=== PATIENT | male | born 1960 | race American Indian/Alaskan Native ===

== ENCOUNTER 2019-02-21 13:12 | Inpatient (IN) | payer OTHER ==
--- NOTE | 2019-02-21 13:47 | Emergency Department Report ---
Chief Complaint: Neuro Symptoms/Deficit Stated Complaint: RT SIDE NUMB/POS STROKE Time Seen by Provider: 02/21/19 13:42 - HPI History of Present Illness: This is a 58 y.o. male that presents to ER with right sided numbness and weakness since yesterday around 1200. Patient reports numbness occurred while at work yesterday and improved. He went home and symptoms returned with worsening this morning. Patient states he was told at work today speech is slurred. PMH: HTN - Exam Vital Signs: Vital Signs 02/21/19 13:43 Temperature 98.7 F Pulse Rate 90 Respiratory 16 Rate Blood Pressure 166/104 O2 Sat by Pulse 97 Oximetry MSE screening note: Focused history and physical exam performed. Due to findings the following was ordered: Labs and CT of head ED Disposition for MSE Condition: Stable
[2019-02-21 14:55] LABS: Basophils # (Auto) 0.1 K/mm3 (0.0-0.1); Eosinophils # (Auto) 0.3 K/mm3 (0.0-0.4); Eosinophils % (Auto) 5.4 % (0.0-4.3); Hematocrit 48.1 % (35.5-45.6); Hemoglobin 16.5 gm/dl (11.8-15.2); Lymphocytes # (Auto) 1.5 K/mm3 (1.2-5.4); Lymphocytes % (Auto) 24.5 % (13.4-35.0); Mean Corpuscular HGB Conc 34 % (32-34); Mean Corpuscular Volume 84 fl (84-94); Monocytes # (Auto) 0.6 K/mm3 (0.0-0.8); Monocytes % (Auto) 9.3 % (0.0-7.3); Platelet Count 195 K/mm3 (140-440); Red Blood Count 5.74 M/mm3 (3.65-5.03); Red Cell Distribution Width 15.6 % (13.2-15.2)
[2019-02-21 15:09] LABS: INR 0.94 (0.87-1.13)
--- NOTE | 2019-02-21 15:09 | Cat Scan Report ---
PROCEDURE: CT HEAD/BRAIN WO CON TECHNIQUE: A noncontrast CT of the head was performed. HISTORY: neuro deficits <6hrs or sx present upon awakening COMPARISON: None FINDINGS: There is no acute intracranial hemorrhage. There is no brain edema, mass effect or midline shift. Ventricular size is appropriate for brain volume. There is no abnormal extra-axial fluid collections. There is no skull fracture seen. The visualized paranasal sinuses are clear. IMPRESSION: There is no acute intracranial abnormality seen. This document is electronically signed by Meghana Roberson MD., Feb 21 2019 03:07:51 PM ET
[2019-02-21 15:10] LABS: Thrombin Time 16.3 Sec. (15.1-19.6)
[2019-02-21 15:18] LABS: BUN/Creatinine Ratio 7; Blood Urea Nitrogen 8 mg/dL (9-20); Calcium 9.6 mg/dL (8.4-10.2); Hemolysis Index 34
[2019-02-21 18:47] LABS: Bilirubin,Urine NEG (Negative); Blood,Urine NEG (Negative); Color,Urine Yellow (Yellow); Mucus,Urine FEW /HPF; Protein,Urine <15 mg/dL mg/dL (Negative)
[2019-02-21 18:48] LABS: RBC,Urine < 1.0 /HPF (0.0-6.0)
[2019-02-21 18:49] LABS: Amphetamine Screen,Urine PRESUMPTIVE NEGATIVE; Benzodiazepines Screen,Urine PRESUMPTIVE NEGATIVE; Cannabinoid Screen,Urine PRESUMPTIVE NEGATIVE; Cocaine Screen,Urine PRESUMPTIVE NEGATIVE; Methadone Screen,Urine PRESUMPTIVE NEGATIVE; Opiate Screen,Urine PRESUMPTIVE NEGATIVE
--- NOTE | 2019-02-21 18:49 | Emergency Department Report ---
ED Neuro Deficit HPI - General Chief Complaint: Neuro Symptoms/Deficit Stated Complaint: RT SIDE NUMB/POS STROKE Time Seen by Provider: 02/21/19 13:42 Source: patient Mode of arrival: Wheelchair Limitations: No Limitations - History of Present Illness Initial Comments: 58-year-old male with right-sided weakness and numbness. Patient states symptoms began at 12 noon on yesterday and then resolved. Patient states he awoke again this morning at 6 AM with the same symptoms. Patient denies facial droop, however states he feels that his speech is different. States he was told to wear his speech is slurred. PCP: none -: days(s) (1) Location: speech, right arm, right leg Presenting Symptoms: Present: Weak/Paralyzed One Side, Facial Droop/Numbness, Unable to Speak Clearly History of same: No Place: home Severity: moderate Quality: weak, numb, tingling Improves With: none Worsens With: none On Anticoagulants: No Context: sudden onset Associated Symptoms: denies other symptoms Treatments Prior to Arrival: none - Related Data Allergies/Adverse Reactions: Allergies Allergy/AdvReac Type Severity Reaction Status Date / Time No Known Allergies Allergy Unverified 02/21/19 18:49 ED Review of Systems ROS: Stated complaint: RT SIDE NUMB/POS STROKE Other details as noted in HPI Comment: All other systems reviewed and negative Cardiovascular: denies: chest pain Neurological: weakness, numbness, paresthesias. denies: headache ED Past Medical Hx - Past Medical History Previous Medical History?: No - Surgical History Past Surgical History?: No - Social History Smoking Status: Current Every Day Smoker Substance Use Type: Alcohol ED Neuro Physical Exam - General Limitations: No Limitations General appearance: alert, in no apparent distress Suspected Stroke: Yes - Head Head exam: Present: atraumatic, normocephalic - Eye Eye exam: Present: normal appearance, PERRL, EOMI - ENT ENT exam: Present: mucous membranes moist - Neck Neck exam: Present: normal inspection - Respiratory Respiratory exam: Present: normal lung sounds bilaterally. Absent: respiratory distress - Cardiovascular Cardiovascular Exam: Present: regular rate, normal rhythm - GI/Abdominal GI/Abdominal exam: Present: soft. Absent: distended, tenderness - Extremities Exam Extremities exam: Present: normal inspection - Neurological Exam Neurological exam: Present: alert, oriented X3, CN II-XII intact, motor sensory deficit - NIHSS Assessment Interval: Baseline 1a. Level of Consciousness: alert/keenly responsive 1b. LOC Questions: answers both correctly 1c. LOC Commands: performs tasks correctly 2. Best Gaze: normal 3. Visual: no visual loss 4. Facial Palsy: normal symmetrical movement 5b. Motor Arm Right: drift 5a. Motor Arm Left: no drift 6a. Motor Leg Left: no drift 6b. Motor Leg Right: drift 7. Limb Ataxia: absent 8. Sensory: mild/moderate sensory loss 9. Best Language: no aphasia 10. Dysarthria: normal 11. Extinction/Inattention: no abnormality Total Score: 3 Stroke Severity: Minor Stroke - Psychiatric Psychiatric exam: Present: normal affect, normal mood - Skin Skin exam: Present: warm, dry, intact, normal color ED Course Vital Signs 02/21/19 02/21/19 02/21/19 13:43 17:55 18:51 Temperature 98.7 F 98.2 F Pulse Rate 90 86 74 Respiratory 16 16 16 Rate Blood Pressure 166/104 Blood Pressure 155/90 160/106 [Left] O2 Sat by Pulse 97 100 100 Oximetry 02/21/19 02/21/19 02/21/19 19:00 19:15 19:45 Temperature Pulse Rate 72 65 69 Respiratory 11 L 15 21 Rate Blood Pressure 165/109 165/109 149/101 Blood Pressure [Left] O2 Sat by Pulse 100 100 99 Oximetry 02/21/19 02/21/19 02/21/19 20:00 20:15 21:01 Temperature Pulse Rate 65 69 81 Respiratory 14 18 15 Rate Blood Pressure 152/80 152/80 155/98 Blood Pressure [Left] O2 Sat by Pulse 99 99 97 Oximetry 02/21/19 02/21/19 02/21/19 21:45 22:01 22:15 Temperature Pulse Rate 73 70 67 Respiratory 11 L 11 L 18 Rate Blood Pressure 155/98 161/99 161/99 Blood Pressure [Left] O2 Sat by Pulse 99 95 99 Oximetry 02/21/19 02/21/19 02/21/19 22:31 22:45 23:01 Temperature Pulse Rate 69 62 61 Respiratory 16 22 16 Rate Blood Pressure 161/99 161/99 161/99 Blood Pressure [Left] O2 Sat by Pulse 99 99 97 Oximetry 02/21/19 23:49 Temperature 98.2 F Pulse Rate 71 Respiratory 16 Rate Blood Pressure 190/114 Blood Pressure [Left] O2 Sat by Pulse 96 Oximetry - Consultations Consultation #1: 02/21/19 19:12 Pt seen and evaluated by Dr Guillen. Does not recommend CTA, NIH scale only 3. Recommends admit for MRI. - Lab Data Result diagrams: 02/21/19 14:42 02/21/19 14:42 Lab Results 02/21/19 02/21/19 02/21/19 Range/Units 14:42 14:42 14:42 WBC 6.3 (4.5-11.0) K/mm3 RBC 5.74 H (3.65-5.03) M/mm3 Hgb 16.5 H (11.8-15.2) gm/dl Hct 48.1 H (35.5-45.6) % MCV 84 (84-94) fl MCH 29 (28-32) pg MCHC 34 (32-34) % RDW 15.6 H (13.2-15.2) % Plt Count 195 (140-440) K/mm3 Lymph % (Auto) 24.5 (13.4-35.0) % [place] % (Auto) 9.3 H (0.0-7.3) % Eos % (Auto) 5.4 H (0.0-4.3) % Baso % (Auto) 1.0 (0.0-1.8) % Lymph # 1.5 (1.2-5.4) K/mm3 [place] # 0.6 (0.0-0.8) K/mm3 Eos # 0.3 (0.0-0.4) K/mm3 Baso # 0.1 (0.0-0.1) K/mm3 Seg Neutrophils % 59.8 (40.0-70.0) % Seg Neutrophils # 3.8 (1.8-7.7) K/mm3 PT 13.1 (12.2-14.9) Sec. INR 0.94 (0.87-1.13) APTT 27.0 (24.2-36.6) Sec. Thrombin Time 16.3 (15.1-19.6) Sec. Sodium 145 (137-145) mmol/L Potassium 4.5 (3.6-5.0) mmol/L Chloride 107.4 H (98-107) mmol/L Carbon Dioxide 24 (22-30) mmol/L Anion Gap 18 mmol/L BUN 8 L (9-20) mg/dL Creatinine 1.2 (0.8-1.5) mg/dL Estimated GFR > 60 ml/min BUN/Creatinine Ratio 7 % Glucose 103 H (75-100) mg/dL Calcium 9.6 (8.4-10.2) mg/dL Troponin T < 0.010 (0.00-0.029) ng/mL Urine Color (Yellow) Urine Turbidity (Clear) Urine pH (5.0-7.0) Ur Specific [place] (1.003-1.030) Urine Protein (Negative) mg/dL Urine Glucose (UA) (Negative) mg/dL Urine Ketones (Negative) mg/dL Urine Blood (Negative) Urine Nitrite (Negative) Urine Bilirubin (Negative) Urine Urobilinogen (<2.0) mg/dL Ur Leukocyte Esterase (Negative) Urine WBC (Auto) (0.0-6.0) /HPF Urine RBC (Auto) (0.0-6.0) /HPF Urine Mucus /HPF Urine Opiates Screen Urine Methadone Screen Ur Barbiturates Screen Ur Phencyclidine Scrn Ur Amphetamines Screen U Benzodiazepines Scrn Urine Cocaine Screen U Marijuana (THC) Screen Drugs of Abuse Note 02/21/19 02/21/19 Range/Units 17:54 17:54 WBC (4.5-11.0) K/mm3 RBC (3.65-5.03) M/mm3 Hgb (11.8-15.2) gm/dl Hct (35.5-45.6) % MCV (84-94) fl MCH (28-32) pg MCHC (32-34) % RDW (13.2-15.2) % Plt Count (140-440) K/mm3 Lymph % (Auto) (13.4-35.0) % [place] % (Auto) (0.0-7.3) % Eos % (Auto) (0.0-4.3) % Baso % (Auto) (0.0-1.8) % Lymph # (1.2-5.4) K/mm3 [place] # (0.0-0.8) K/mm3 Eos # (0.0-0.4) K/mm3 Baso # (0.0-0.1) K/mm3 Seg Neutrophils % (40.0-70.0) % Seg Neutrophils # (1.8-7.7) K/mm3 PT (12.2-14.9) Sec. INR (0.87-1.13) APTT (24.2-36.6) Sec. Thrombin Time (15.1-19.6) Sec. Sodium (137-145) mmol/L Potassium (3.6-5.0) mmol/L Chloride (98-107) mmol/L Carbon Dioxide (22-30) mmol/L Anion Gap mmol/L BUN (9-20) mg/dL Creatinine (0.8-1.5) mg/dL Estimated GFR ml/min BUN/Creatinine Ratio % Glucose (75-100) mg/dL Calcium (8.4-10.2) mg/dL Troponin T (0.00-0.029) ng/mL Urine Color Yellow (Yellow) Urine Turbidity Clear (Clear) Urine pH 5.0 (5.0-7.0) Ur Specific [place] 1.017 (1.003-1.030) Urine Protein <15 mg/dl (Negative) mg/dL Urine Glucose (UA) Neg (Negative) mg/dL Urine Ketones Neg (Negative) mg/dL Urine Blood Neg (Negative) Urine Nitrite Neg (Negative) Urine Bilirubin Neg (Negative) Urine Urobilinogen 2.0 (<2.0) mg/dL Ur Leukocyte Esterase Neg (Negative) Urine WBC (Auto) 1.0 (0.0-6.0) /HPF Urine RBC (Auto) < 1.0 (0.0-6.0) /HPF Urine Mucus Few /HPF Urine Opiates Screen Presumptive negative Urine Methadone Screen Presumptive negative Ur Barbiturates Screen Presumptive negative Ur Phencyclidine Scrn Presumptive negative Ur Amphetamines Screen Presumptive negative U Benzodiazepines Scrn Presumptive negative Urine Cocaine Screen Presumptive negative U Marijuana (THC) Screen Presumptive negative Drugs of Abuse Note Disclamer - EKG Data -: EKG Interpreted by [place] EKG shows normal: sinus rhythm, axis, intervals Rate: normal Interpretation: other (LAFB, T wave inversions in lateral leads) - Radiology Data Radiology results: report reviewed, image reviewed - Medical Decision Making 58 yo M w/ R-sided weakness and numbness since yesterday. CT negative. NIH scale of 3. Pt outside the window for tPA. CTA not recommended by neurologist. Aspirin given. Will admit to hospitalist for MRI and further workup. - Differential Diagnosis CVA - Thrombolytic Inclusion/Exclusion Thrombolytic Exclusion Criteria: Symptom Onset > 3 Hours Critical care attestation.: If time is entered above; I have spent that time in minutes in the direct care of this critically ill patient, excluding procedure time. ED Disposition Clinical Impression: CVA (cerebral vascular accident) Disposition: OP ADMIT IP TO THIS HOSP Is pt being admited?: Yes Condition: Stable Time of Disposition: 19:17
[2019-02-21] MEDS ORDERED: ASPIRIN PO ONE (19:17)
[2019-02-21] MEDS ORDERED: DULCOLAX PR PRN (20:53)
[2019-02-21] MEDS ORDERED: PHENERGAN PR PRN (20:53)
[2019-02-21] MEDS ORDERED: MILK OF MAGNESIA PO PRN (20:53)
[2019-02-21] MEDS ORDERED: TYLENOL PO PRN (20:53)
[2019-02-21] MEDS ORDERED: SODIUM CHLORIDE FLUSH SYRINGE 10 ML IV PRN (20:53)
[2019-02-21] MEDS ORDERED: PERCOCET 5/325 PO PRN (20:53)
[2019-02-21] MEDS ORDERED: REGLAN PO PRN (20:53)
[2019-02-21] MEDS ORDERED: ZOFRAN IV PRN (20:53)
[2019-02-21] MEDS ORDERED: NACL 0.9% 1000 ML 1,000 ML IV SCH (21:00)
--- NOTE | 2019-02-21 21:21 | History and Physical Report ---
<TATIANA GUTIÉRREZ - Last Filed: 02/21/19 22:23> History of Present Illness Date of examination: 02/21/19 Date of admission: 02/21/2019 Chief complaint: Weakness, strokelike symptoms History of present illness: Patient is a 58-year-old male with PMHx of HTN for which she takes amlodipine, chronic neck and back, tobacco use disorder who presents to the ER with complaints of right-sided weakness and numbness 2 days. Patient states that the symptoms started around 12 noon yesterday and then resolved. Patient states he woke up this morning at 6 AM with the same symptoms, he went back to sleep and when he woke up the symptoms were still there, he decided to come to the ER for evaluation. Patient denies facial droop, he denied slurred speech but states that he feels that his speech is different, he reports right shoulder soreness, denies any injuries, denies prior self or family history of stroke. Patient had a CT scan of the brain in the ER which was negative, is admitted for for evaluation of his acute stroke symptoms. Past History Past Medical History: hypertension Past Surgical History: No surgical history Social history: smoking (daily), alcohol abuse (Occasionally) Family history: no significant family history Medications and Allergies Allergies Allergy/AdvReac Type Severity Reaction Status Date / Time No Known Allergies Allergy Unverified 02/21/19 18:49 Active Meds: Active Medications Acetaminophen (Tylenol) 650 mg PO Q4H PRN PRN Reason: Pain MILD(1-3)/Fever >100.5/GUTIERREZ Aspirin (Aspirin) 325 mg PO QDAY PERRY Bisacodyl (Dulcolax) 10 mg MO QDAY PRN PRN Reason: Constipation Docusate Sodium (Colace) 100 mg PO BID PERRY Famotidine (Pepcid) 20 mg IV BID PERRY Sodium Chloride (Nacl 0.9% 1000 Ml) 1,000 mls @ 75 mls/hr IV DIRECT PERRY Magnesium Hydroxide (Milk Of Magnesia) 30 ml PO Q4H PRN PRN Reason: Constipation Metoclopramide HCl (Reglan) 10 mg PO Q6H PRN PRN Reason: Nausea And Vomiting Ondansetron HCl (Zofran) 4 mg IV Q8H PRN PRN Reason: Nausea And Vomiting Oxycodone/Acetaminophen (Percocet 5/325) 1 tab PO Q6H PRN PRN Reason: Pain, Moderate (4-6) Pravastatin Sodium (Pravachol) 20 mg PO QHS PERRY Promethazine HCl (Phenergan) 25 mg MO Q6H PRN PRN Reason: Nausea And Vomiting Sodium Chloride (Sodium Chloride Flush Syringe 10 Ml) 10 ml IV BID PERRY Sodium Chloride (Sodium Chloride Flush Syringe 10 Ml) 10 ml IV PRN PRN PRN Reason: LINE FLUSH Review of Systems Neurological: weakness (right-sided), numbness Exam - Constitutional Vitals: Temp Pulse Resp BP Pulse Ox 98.2 F 69 18 152/80 99 02/21/19 18:51 02/21/19 20:15 02/21/19 20:15 02/21/19 20:15 02/21/19 20:15 General appearance: Present: no acute distress - EENT Eyes: Present: EOM intact ENT: hearing intact, no dentition normal - Neck Neck: Present: normal ROM - Respiratory Respiratory effort: normal Respiratory: bilateral: CTA - Cardiovascular Rhythm: regular Heart Sounds: Present: S1 & S2 - Extremities Extremities: pulses intact, Full ROM Peripheral Pulses: within normal limits - Abdominal General gastrointestinal: Present: soft, non-tender Male genitourinary: Present: deferred - Rectal Rectal Exam: deferred - Integumentary Integumentary: Present: clear - Musculoskeletal Musculoskeletal: strength equal bilaterally - Psychiatric Psychiatric: appropriate mood/affect - Allied Health Allied health notes reviewed: case management Results - Labs CBC & Chem 7: 02/21/19 14:42 02/21/19 14:42 Labs: Laboratory Last Values WBC 6.3 K/mm3 (4.5-11.0) 02/21/19 14:42 RBC 5.74 M/mm3 (3.65-5.03) H 02/21/19 14:42 Hgb 16.5 gm/dl (11.8-15.2) H 02/21/19 14:42 Hct 48.1 % (35.5-45.6) H 02/21/19 14:42 MCV 84 fl (84-94) 02/21/19 14:42 MCH 29 pg (28-32) 02/21/19 14:42 MCHC 34 % (32-34) 02/21/19 14:42 RDW 15.6 % (13.2-15.2) H 02/21/19 14:42 Plt Count 195 K/mm3 (140-440) 02/21/19 14:42 Lymph % (Auto) 24.5 % (13.4-35.0) 02/21/19 14:42 [place] % (Auto) 9.3 % (0.0-7.3) H 02/21/19 14:42 Eos % (Auto) 5.4 % (0.0-4.3) H 02/21/19 14:42 Baso % (Auto) 1.0 % (0.0-1.8) 02/21/19 14:42 Lymph # 1.5 K/mm3 (1.2-5.4) 02/21/19 14:42 [place] # 0.6 K/mm3 (0.0-0.8) 02/21/19 14:42 Eos # 0.3 K/mm3 (0.0-0.4) 02/21/19 14:42 Baso # 0.1 K/mm3 (0.0-0.1) 02/21/19 14:42 Seg Neutrophils % 59.8 % (40.0-70.0) 02/21/19 14:42 Seg Neutrophils # 3.8 K/mm3 (1.8-7.7) 02/21/19 14:42 PT 13.1 Sec. (12.2-14.9) 02/21/19 14:42 INR 0.94 (0.87-1.13) 02/21/19 14:42 APTT 27.0 Sec. (24.2-36.6) 02/21/19 14:42 16.3 Sec. (15.1-19.6) 02/21/19 14:42 Sodium 145 mmol/L (137-145) 02/21/19 14:42 Potassium 4.5 mmol/L (3.6-5.0) 02/21/19 14:42 Chloride 107.4 mmol/L (98-107) H 02/21/19 14:42 Carbon Dioxide 24 mmol/L (22-30) 02/21/19 14:42 18 mmol/L 02/21/19 14:42 BUN 8 mg/dL (9-20) L 02/21/19 14:42 1.2 mg/dL (0.8-1.5) 02/21/19 14:42 Estimated GFR > 60 ml/min 02/21/19 14:42 7 % 02/21/19 14:42 Glucose 103 mg/dL (75-100) H 02/21/19 14:42 Calcium 9.6 mg/dL (8.4-10.2) 02/21/19 14:42 < 0.010 ng/mL (0.00-0.029) 02/21/19 14:42 Yellow (Yellow) 02/21/19 17:54 Clear (Clear) 02/21/19 17:54 5.0 (5.0-7.0) 02/21/19 17:54 Ur Specific [place] 1.017 (1.003-1.030) 02/21/19 17:54 <15 mg/dl mg/dL (Negative) 02/21/19 17:54 Neg mg/dL (Negative) 02/21/19 17:54 Neg mg/dL (Negative) 02/21/19 17:54 Neg (Negative) 02/21/19 17:54 Neg (Negative) 02/21/19 17:54 Neg (Negative) 02/21/19 17:54 2.0 mg/dL (<2.0) 02/21/19 17:54 Ur Leukocyte Esterase Neg (Negative) 02/21/19 17:54 1.0 /HPF (0.0-6.0) 02/21/19 17:54 < 1.0 /HPF (0.0-6.0) 02/21/19 17:54 Few /HPF 02/21/19 17:54 Presumptive negative 02/21/19 17:54 Presumptive negative 02/21/19 17:54 Ur Barbiturates Screen Presumptive negative 02/21/19 17:54 Ur Phencyclidine Scrn Presumptive negative 02/21/19 17:54 Ur Amphetamines Screen Presumptive negative 02/21/19 17:54 U Benzodiazepines Scrn Presumptive negative 02/21/19 17:54 Presumptive negative 02/21/19 17:54 U Marijuana (THC) Screen Presumptive negative 02/21/19 17:54 Disclamer 02/21/19 17:54 Assessment and Plan Assessment and plan: 1. Acute ischemic stroke 2. Accelerated hypertension 3. Tobacco use disorder 4. Chronic neck/back pain Plan: Patient is admitted to a telemetry for acute stroke symptoms Stroke protocol initiated MRI of the brain to follow up CT Bilateral carotid Doppler study Echocardiogram in the a.m. Consultation neurology for evaluation PT/OT to eval and treat Case management for DC Plan Hydralazine 10 mg daily for systolic BP greater than 165 Start aspirin, statin, beta freddy Check hemoglobin A1c and lipid panel Plan of care discussed with patient, voiced understanding Patient's condition and plan of Care discussed with Dr. Ramírez Advance Directives: Yes VTE prophylaxis?: Mechanical Plan of care discussed with patient/family: Yes <ROBERTH RAMÍREZ - Last Filed: 02/22/19 02:48> History of Present Illness Date of admission: 02/21/19 20:54 Medications and Allergies Active Meds: Active Medications Acetaminophen (Tylenol) 650 mg PO Q4H PRN PRN Reason: Pain MILD(1-3)/Fever >100.5/GUTIERREZ Aspirin (Aspirin) 325 mg PO QDAY PERRY Bisacodyl (Dulcolax) 10 mg MO QDAY PRN PRN Reason: Constipation Docusate Sodium (Colace) 100 mg PO BID PERRY Famotidine (Pepcid) 20 mg IV BID PERRY Hydralazine HCl (Apresoline) 10 mg IV Q4HR PERRY Sodium Chloride (Nacl 0.9% 1000 Ml) 1,000 mls @ 75 mls/hr IV DIRECT PERRY Magnesium Hydroxide (Milk Of Magnesia) 30 ml PO Q4H PRN PRN Reason: Constipation Metoclopramide HCl (Reglan) 10 mg PO Q6H PRN PRN Reason: Nausea And Vomiting Ondansetron HCl (Zofran) 4 mg IV Q8H PRN PRN Reason: Nausea And Vomiting Oxycodone/Acetaminophen (Percocet 5/325) 1 tab PO Q6H PRN PRN Reason: Pain, Moderate (4-6) Pravastatin Sodium (Pravachol) 20 mg PO QHS PERRY Promethazine HCl (Phenergan) 25 mg MO Q6H PRN PRN Reason: Nausea And Vomiting Sodium Chloride (Sodium Chloride Flush Syringe 10 Ml) 10 ml IV BID PERRY Sodium Chloride (Sodium Chloride Flush Syringe 10 Ml) 10 ml IV PRN PRN PRN Reason: LINE FLUSH Exam - Constitutional Vitals: Temp Pulse Resp BP Pulse Ox 98.2 F 61 16 161/99 97 02/21/19 18:51 02/21/19 23:01 02/21/19 23:01 02/21/19 23:01 02/21/19 23:01 Results - Labs CBC & Chem 7: 02/21/19 14:42 02/21/19 14:42 Labs: Laboratory Last Values WBC 6.3 K/mm3 (4.5-11.0) 02/21/19 14:42 RBC 5.74 M/mm3 (3.65-5.03) H 02/21/19 14:42 Hgb 16.5 gm/dl (11.8-15.2) H 02/21/19 14:42 Hct 48.1 % (35.5-45.6) H 02/21/19 14:42 MCV 84 fl (84-94) 02/21/19 14:42 MCH 29 pg (28-32) 02/21/19 14:42 MCHC 34 % (32-34) 02/21/19 14:42 RDW 15.6 % (13.2-15.2) H 02/21/19 14:42 Plt Count 195 K/mm3 (140-440) 02/21/19 14:42 Lymph % (Auto) 24.5 % (13.4-35.0) 02/21/19 14:42 [place] % (Auto) 9.3 % (0.0-7.3) H 02/21/19 14:42 Eos % (Auto) 5.4 % (0.0-4.3) H 02/21/19 14:42 Baso % (Auto) 1.0 % (0.0-1.8) 02/21/19 14:42 Lymph # 1.5 K/mm3 (1.2-5.4) 02/21/19 14:42 [place] # 0.6 K/mm3 (0.0-0.8) 02/21/19 14:42 Eos # 0.3 K/mm3 (0.0-0.4) 02/21/19 14:42 Baso # 0.1 K/mm3 (0.0-0.1) 02/21/19 14:42 Seg Neutrophils % 59.8 % (40.0-70.0) 02/21/19 14:42 Seg Neutrophils # 3.8 K/mm3 (1.8-7.7) 02/21/19 14:42 PT 13.1 Sec. (12.2-14.9) 02/21/19 14:42 INR 0.94 (0.87-1.13) 02/21/19 14:42 APTT 27.0 Sec. (24.2-36.6) 02/21/19 14:42 16.3 Sec. (15.1-19.6) 02/21/19 14:42 Sodium 145 mmol/L (137-145) 02/21/19 14:42 Potassium 4.5 mmol/L (3.6-5.0) 02/21/19 14:42 Chloride 107.4 mmol/L (98-107) H 02/21/19 14:42 Carbon Dioxide 24 mmol/L (22-30) 02/21/19 14:42 18 mmol/L 02/21/19 14:42 BUN 8 mg/dL (9-20) L 02/21/19 14:42 1.2 mg/dL (0.8-1.5) 02/21/19 14:42 Estimated GFR > 60 ml/min 02/21/19 14:42 7 % 02/21/19 14:42 Glucose 103 mg/dL (75-100) H 02/21/19 14:42 Calcium 9.6 mg/dL (8.4-10.2) 02/21/19 14:42 < 0.010 ng/mL (0.00-0.029) 02/21/19 14:42 Triglycerides 140 mg/dL (2-149) 02/21/19 21:19 Cholesterol 243 mg/dL (50-199) H 02/21/19 21:19 200 mg/dL (50-130) H 02/21/19 21:19 36 mg/dL (40-59) L 02/21/19 21:19 6.75 % 02/21/19 21:19 Yellow (Yellow) 02/21/19 17:54 Clear (Clear) 02/21/19 17:54 5.0 (5.0-7.0) 02/21/19 17:54 Ur Specific [place] 1.017 (1.003-1.030) 02/21/19 17:54 <15 mg/dl mg/dL (Negative) 02/21/19 17:54 Neg mg/dL (Negative) 02/21/19 17:54 Neg mg/dL (Negative) 02/21/19 17:54 Neg (Negative) 02/21/19 17:54 Neg (Negative) 02/21/19 17:54 Neg (Negative) 02/21/19 17:54 2.0 mg/dL (<2.0) 02/21/19 17:54 Ur Leukocyte Esterase Neg (Negative) 02/21/19 17:54 1.0 /HPF (0.0-6.0) 02/21/19 17:54 < 1.0 /HPF (0.0-6.0) 02/21/19 17:54 Few /HPF 02/21/19 17:54 Presumptive negative 02/21/19 17:54 Presumptive negative 02/21/19 17:54 Ur Barbiturates Screen Presumptive negative 02/21/19 17:54 Ur Phencyclidine Scrn Presumptive negative 02/21/19 17:54 Ur Amphetamines Screen Presumptive negative 02/21/19 17:54 U Benzodiazepines Scrn Presumptive negative 02/21/19 17:54 Presumptive negative 02/21/19 17:54 U Marijuana (THC) Screen Presumptive negative 02/21/19 17:54 Disclamer 02/21/19 17:54 Assessment and Plan Assessment and plan: 58-year-old man history of hypertension causing the emergency room with complains of numbness and weakness of the right side that lasted for 15 minutes yesterday. Symptoms return this morning and has been constant. Physical exam is significant for right lower extremity motor 4/5, paresthesia lower extremity, right greater than left. Agree with plan above discontinue carotid Doppler, patient obtaining an MRI of the head and neck
[2019-02-21] MEDS ORDERED: PRAVACHOL PO SCH (22:00)
[2019-02-21 22:03] LABS: Chol/HDL Ratio 6.75 %
--- NOTE | 2019-02-21 23:08 | Consultation ---
History of Present Illness Consult date: 02/21/19 Chief complaint: stroke alert History of present illness: 58 yo male with h/o HTN states yesterday at 1200 noon he noted right side went completely numb, lasted 10-15 min then resolved completely; symptoms came back whil ehe was asleep- LKN 1830 hrs 02/20/19 - woke up with a feeling of incoordination in the right arm/hand and numbness, no h/o stroke before, takes baby aspirin daily; came to ED Medications and Allergies Allergies Allergy/AdvReac Type Severity Reaction Status Date / Time No Known Allergies Allergy Unverified 02/21/19 18:49 Active Meds: Active Medications Acetaminophen (Tylenol) 650 mg PO Q4H PRN PRN Reason: Pain MILD(1-3)/Fever >100.5/GUTIERREZ Aspirin (Aspirin) 325 mg PO QDAY PERRY Bisacodyl (Dulcolax) 10 mg [place] QDAY PRN PRN Reason: Constipation Docusate Sodium (Colace) 100 mg PO BID PERRY Famotidine (Pepcid) 20 mg IV BID [facility] Sodium Chloride (Nacl 0.9% 1000 Ml) 1,000 mls @ 75 mls/hr IV DIRECT PERRY Magnesium Hydroxide (Milk Of Magnesia) 30 ml PO Q4H PRN PRN Reason: Constipation Metoclopramide HCl (Reglan) 10 mg PO Q6H PRN PRN Reason: Nausea And Vomiting Ondansetron HCl (Zofran) 4 mg IV Q8H PRN PRN Reason: Nausea And Vomiting Oxycodone/Acetaminophen (Percocet 5/325) 1 tab PO Q6H PRN PRN Reason: Pain, Moderate (4-6) Pravastatin Sodium (Pravachol) 20 mg PO QHS PERRY Promethazine HCl (Phenergan) 25 mg [place] Q6H PRN PRN Reason: Nausea And Vomiting Sodium Chloride (Sodium Chloride Flush Syringe 10 Ml) 10 ml IV BID PERRY Sodium Chloride (Sodium Chloride Flush Syringe 10 Ml) 10 ml IV PRN PRN PRN Reason: LINE FLUSH Physical Examination - Vital Signs Vital Signs: Vital Signs Temp Pulse Resp BP Pulse Ox 98.7 F 90 16 166/104 97 02/21/19 13:43 02/21/19 13:43 02/21/19 13:43 02/21/19 13:43 02/21/19 13:43 - Level of Consciousness 1a. Level of Consciousness: alert/keenly responsive - LOC Questions 1b. LOC Questions: answers both correctly - LOC Command 1c. LOC Commands: performs tasks correctly - Best Gaze 2. Best Gaze: normal - Visual 3. Visual: no visual loss - Facial Palsy 4. Facial Palsy: minor paralysis - Motor Arm 5a. Motor Arm Left: no drift 5b. Motor Arm Right: drift - Motor Leg 6a. Motor Leg Left: no drift 6b. Motor Leg Right: no drift - Limb Ataxia 7. Limb Ataxia: absent - Sensory 8. Sensory: mild/moderate sensory loss - Best Language 9. Best Language: no aphasia - Dysarthria 10. Dysarthria: normal - Extinction and Inattention 11. Extinction/Inattention: no abnormality - Scoring Total Score: 3 Stroke Severity: Minor Stroke Results - Laboratory Findings CBC and BMP: 02/21/19 14:42 02/21/19 14:42 Abnormal Lab Findings: Abnormal Labs 02/21/19 02/21/19 02/21/19 14:42 14:42 21:19 RBC 5.74 H Hgb 16.5 H Hct 48.1 H RDW 15.6 H [place] % (Auto) 9.3 H Eos % (Auto) 5.4 H Chloride 107.4 H BUN 8 L Glucose 103 H Cholesterol 243 H LDL Cholesterol Direct 200 H HDL Cholesterol 36 L - Diagnostic Findings Additional findings: CT head w/o bleed Assessment and Plan [facility] Tele[facility]urology Consult Services Impression: r/o stroke Recommendations: aspirin now no tPA given LKN time not an LVO MRI brain MRA H/N w/wo casino games dealer if creatinine okay to look at vessels given stuttering course initially telemetry echo, lipids, a1C, b12/folate neurology consultation PT/OT/ENVIRONMENTAL SCIENCE PROFESSOR Sheela Guillen MD [facility] d/w ED doc Metrics: date of consult 02/21/19 LKN 182902/20/19 door: 1310 TS called 1833 TS connected 1839 NIHSS 1839 Medical Decision Making: - Extensive number of diagnosis or management options are considered above. - Extensive amount of complex data reviewed. - High risk of complication and/or morbidity or mortality are associated with differential diagnostic considerations above. - There may be uncertain outcome and increased probability of prolonged functional impairment or high probability of severe prolonged functional impairment associated with some of these differential diagnosis. Medical Data Reviewed: 1.Data reviewed include clinical labs, radiology, Medical Tests; 2.Tests results discussed w/performing or interpreting physician; 3.Obtaining/reviewing old medical records; 4.Obtaining case history from another source; 5.Independent review of image, tracing or specimen. Patient was informed the Neurology Consult would happen via telehealth (remote video) and consented to receiving care in this manner.
[2019-02-22] MEDS: PEPCID IV SCH ×2 (00:10→11:00)
[2019-02-22] MEDS: COLACE PO SCH ×3 (00:10→22:08)
[2019-02-22] MEDS: SODIUM CHLORIDE FLUSH SYRINGE 10 ML IV SCH ×3 (00:11→22:08)
[2019-02-22] MEDS: APRESOLINE IV SCH ×6 (02:11→22:07)
[2019-02-22 06:19] LABS: Basophils # (Auto) 0.1 K/mm3 (0.0-0.1); Basophils % (Auto) 1.2 % (0.0-1.8); Eosinophils # (Auto) 0.4 K/mm3 (0.0-0.4); Eosinophils % (Auto) 6.8 % (0.0-4.3); Hematocrit 45.9 % (35.5-45.6); Hemoglobin 15.2 gm/dl (11.8-15.2); Lymphocytes # (Auto) 1.4 K/mm3 (1.2-5.4); Lymphocytes % (Auto) 24.6 % (13.4-35.0); Mean Corpuscular HGB Conc 33 % (32-34); Mean Corpuscular Volume 85 fl (84-94); Monocytes # (Auto) 0.6 K/mm3 (0.0-0.8); Monocytes % (Auto) 10.6 % (0.0-7.3); Platelet Count 171 K/mm3 (140-440); Red Blood Count 5.43 M/mm3 (3.65-5.03); Red Cell Distribution Width 15.5 % (13.2-15.2)
[2019-02-22 06:41] LABS: Alanine Aminotransferase 15 units/L (7-56); Albumin 3.4 g/dL (3.9-5); BUN/Creatinine Ratio 8; Blood Urea Nitrogen 9 mg/dL (9-20); Calcium 9.1 mg/dL (8.4-10.2); Hemolysis Index 19
--- NOTE | 2019-02-22 09:47 | Magnetic Resonance Report ---
MRI BRAIN WITHOUT CONTRAST: 02/22/19 CLINICAL: Stroke. TECHNIQUE: Axial diffusion, T1, T2, gradient echo T2*, coronal and axial FLAIR and sagittal T1 sequences on a 1.5 Val magnet. FINDINGS: The ventricles are normal size. The frontal and temporal lobe sulci are widened compared to the rest of the brain. Focal restricted diffusion involves the left ron and measures approximately 1 cm maximum. No other restricted diffusion. There is corresponding subtle hyperintensity in the involved area on T2 and FLAIR. Moderate bilateral multifocal subcortical and periventricular white matter hyperintensities on FLAIR and T2. These are more in the frontal and temporal lobes. No mass or mass effect. No hemorrhage, edema or extra-axial collection. No chronic microbleeds on the gradient echo sequence. Normal pituitary and optic chiasm. Intact vascular flow voids. Mild bilateral ethmoid sinusitis but otherwise normal sinuses. The orbits, and soft tissues are normal. Normal calvarium and skull base. IMPRESSION: 1. An acute/subacute nonhemorrhagic left pontine lacunar infarct. 2. Frontotemporal cortical atrophy. 3. Moderate chronic white matter microangiopathy with greater involvement of the frontal and temporal lobes.
--- NOTE | 2019-02-22 09:48 | Magnetic Resonance Report ---
MRA HEAD WITHOUT CONTRAST: 02/22/19 CLINICAL: Stroke. TECHNIQUE: Axial 3-D [id number] MR angiography of the havasupai of [place] with review of axial source images. FINDINGS: Intact havas[place]ai of [place] with no aneurysm, stenosis or occlusion. Symmetric blood flow in the anterior, middle and posterior cerebral arteries. Normal basilar and vertebral arteries. The right vertebral artery is dominant. IMPRESSION: Normal study.
[2019-02-22] MEDS ORDERED: ASPIRIN PO SCH (10:00)
[2019-02-22] MEDS: PEPCID PO SCH ×2 (12:31→22:08)
--- NOTE | 2019-02-22 13:21 | Progress Note ---
Assessment and Plan Assessment and plan: Acute nonhemorrhagic left pontine lacunar infarct. Continue aspirin and statin. No TPA given because of less known well time unknown. Follow-up MRI/MRA, echocardiogram. Neurology consultation. PT/OT/ST. Accelerated hypertension. Continue antihypertensive medications. Allow for permissive hypertension. Tobacco use disorder. Tobacco cessation counseling. History Interval history: No new issues overnight. Hospitalist Physical - Constitutional Vitals: Temp Pulse Resp BP Pulse Ox 99.0 F 77 16 149/101 98 02/22/19 04:19 02/22/19 11:02 02/22/19 04:19 02/22/19 11:02 02/22/19 10:10 General appearance: Present: no acute distress - EENT Eyes: Present: PERRL, EOM intact ENT: hearing intact, clear oral mucosa, dentition normal - Neck Neck: Present: supple, normal ROM - Respiratory Respiratory effort: normal Respiratory: bilateral: CTA - Cardiovascular Rhythm: regular Heart Sounds: Present: S1 & S2. Absent: gallop, rub - Extremities Extremities: no ischemia, No edema, Full ROM - Abdominal General gastrointestinal: soft, non-tender, non-distended, normal bowel sounds - Integumentary Integumentary: Present: clear, warm, dry - Neurologic Neurologic: CNII-XII intact, moves all extremities Results - Labs CBC & Chem 7: 02/22/19 05:14 02/22/19 05:14 Labs: Laboratory Last Values WBC 5.7 K/mm3 (4.5-11.0) 02/22/19 05:14 RBC 5.43 M/mm3 (3.65-5.03) H 02/22/19 05:14 Hgb 15.2 gm/dl (11.8-15.2) 02/22/19 05:14 Hct 45.9 % (35.5-45.6) H 02/22/19 05:14 MCV 85 fl (84-94) 02/22/19 05:14 MCH 28 pg (28-32) 02/22/19 05:14 MCHC 33 % (32-34) 02/22/19 05:14 RDW 15.5 % (13.2-15.2) H 02/22/19 05:14 Plt Count 171 K/mm3 (140-440) 02/22/19 05:14 Lymph % (Auto) 24.6 % (13.4-35.0) 02/22/19 05:14 [place] % (Auto) 10.6 % (0.0-7.3) H 02/22/19 05:14 Eos % (Auto) 6.8 % (0.0-4.3) H 02/22/19 05:14 Baso % (Auto) 1.2 % (0.0-1.8) 02/22/19 05:14 Lymph # 1.4 K/mm3 (1.2-5.4) 02/22/19 05:14 [place] # 0.6 K/mm3 (0.0-0.8) 02/22/19 05:14 Eos # 0.4 K/mm3 (0.0-0.4) 02/22/19 05:14 Baso # 0.1 K/mm3 (0.0-0.1) 02/22/19 05:14 Seg Neutrophils % 56.8 % (40.0-70.0) 02/22/19 05:14 Seg Neutrophils # 3.3 K/mm3 (1.8-7.7) 02/22/19 05:14 PT 13.1 Sec. (12.2-14.9) 02/21/19 14:42 INR 0.94 (0.87-1.13) 02/21/19 14:42 APTT 27.0 Sec. (24.2-36.6) 02/21/19 14:42 16.3 Sec. (15.1-19.6) 02/21/19 14:42 Sodium 142 mmol/L (137-145) 02/22/19 05:14 Potassium 4.0 mmol/L (3.6-5.0) 02/22/19 05:14 Chloride 106.7 mmol/L (98-107) 02/22/19 05:14 Carbon Dioxide 23 mmol/L (22-30) 02/22/19 05:14 16 mmol/L 02/22/19 05:14 BUN 9 mg/dL (9-20) 02/22/19 05:14 1.1 mg/dL (0.8-1.5) 02/22/19 05:14 Estimated GFR > 60 ml/min 02/22/19 05:14 8 % 02/22/19 05:14 Glucose 129 mg/dL (75-100) H 02/22/19 05:14 6.5 % (4-6) H 02/22/19 05:14 Calcium 9.1 mg/dL (8.4-10.2) 02/22/19 05:14 0.40 mg/dL (0.1-1.2) 02/22/19 05:14 AST 15 units/L (5-40) 02/22/19 05:14 ALT 15 units/L (7-56) 02/22/19 05:14 73 units/L (35-129) 02/22/19 05:14 < 0.010 ng/mL (0.00-0.029) 02/21/19 14:42 6.3 g/dL (6.3-8.2) 02/22/19 05:14 3.4 g/dL (3.9-5) L 02/22/19 05:14 1.2 % 02/22/19 05:14 Triglycerides 140 mg/dL (2-149) 02/21/19 21:19 Cholesterol 243 mg/dL (50-199) H 02/21/19 21:19 200 mg/dL (50-130) H 02/21/19 21:19 36 mg/dL (40-59) L 02/21/19 21:19 6.75 % 02/21/19 21:19 Yellow (Yellow) 02/21/19 17:54 Clear (Clear) 02/21/19 17:54 5.0 (5.0-7.0) 02/21/19 17:54 Ur Specific [place] 1.017 (1.003-1.030) 02/21/19 17:54 <15 mg/dl mg/dL (Negative) 02/21/19 17:54 Neg mg/dL (Negative) 02/21/19 17:54 Neg mg/dL (Negative) 02/21/19 17:54 Neg (Negative) 02/21/19 17:54 Neg (Negative) 02/21/19 17:54 Neg (Negative) 02/21/19 17:54 2.0 mg/dL (<2.0) 02/21/19 17:54 Ur Leukocyte Esterase Neg (Negative) 02/21/19 17:54 1.0 /HPF (0.0-6.0) 02/21/19 17:54 < 1.0 /HPF (0.0-6.0) 02/21/19 17:54 Few /HPF 02/21/19 17:54 Presumptive negative 02/21/19 17:54 Presumptive negative 02/21/19 17:54 Ur Barbiturates Screen Presumptive negative 02/21/19 17:54 Ur Phencyclidine Scrn Presumptive negative 02/21/19 17:54 Ur Amphetamines Screen Presumptive negative 02/21/19 17:54 U Benzodiazepines Scrn Presumptive negative 02/21/19 17:54 Presumptive negative 02/21/19 17:54 U Marijuana (THC) Screen Presumptive negative 02/21/19 17:54 Disclamer 02/21/19 17:54 Active Medications - Current Medications Current Medications: Generic Name Dose Route Start Last Admin Trade Name Freq PRN Reason Stop Dose Admin Acetaminophen 650 mg 02/21/19 20:53 Tylenol PO Q4H PRN Pain MILD(1-3)/Fever >100.5/GUTIERREZ Aspirin 325 mg 02/22/19 10:00 02/22/19 11:00 Aspirin PO 325 mg QDAY PERRY Administration Bisacodyl 10 mg 02/21/19 20:53 Dulcolax [place] QDAY PRN Constipation Docusate Sodium 100 mg 02/21/19 22:00 02/22/19 11:00 Colace PO 100 mg BID PERRY Administration Famotidine 20 mg 02/22/19 11:00 Pepcid PO BID PERRY Hydralazine HCl 10 mg 02/22/19 02:00 02/22/19 11:02 Apresoline IV 10 mg Q4HR PERRY Administration Sodium Chloride 1,000 mls @ 75 mls/hr 02/21/19 21:00 Nacl 0.9% 1000 Ml IV DIRECT PERRY Magnesium Hydroxide 30 ml 02/21/19 20:53 Milk Of Magnesia PO Q4H PRN Constipation Metoclopramide HCl 10 mg 02/21/19 20:53 Reglan PO Q6H PRN Nausea And Vomiting Ondansetron HCl 4 mg 02/21/19 20:53 Zofran IV Q8H PRN Nausea And Vomiting Oxycodone/Acetaminophen 1 tab 02/21/19 20:53 Percocet 5/325 PO Q6H PRN Pain, Moderate (4-6) Pravastatin Sodium 20 mg 02/21/19 22:00 02/22/19 00:10 Pravachol PO 20 mg QHS PERRY Administration Promethazine HCl 25 mg 02/21/19 20:53 Phenergan [place] Q6H PRN Nausea And Vomiting Sodium Chloride 10 ml 02/21/19 22:00 02/22/19 11:00 Sodium Chloride Flush Syringe 10 Ml IV 10 ml BID PERRY Administration Sodium Chloride 10 ml 02/21/19 20:53 Sodium Chloride Flush Syringe 10 Ml IV PRN PRN LINE FLUSH Nutrition/Malnutrition Assess - Dietary Evaluation Nutrition/Malnutrition Findings: Nutrition Notes Start: 02/22/19 10:30 Freq: Status: Active Protocol: Document 02/22/19 10:30 CP (Rec: 02/22/19 10:35 CP [id number]) Co-Sign 02/22/19 10:30 LP Nutrition Notes Need for Assessment generated from: MD Order,Education Initial or Follow up Brief Note Current Diagnosis Hypertension,Stroke Other Pertinent Diagnosis Tobacco use disorder Current Diet Cardiac Labs/Tests Glu: 129 Pertinent Medications Reviewed Height 5 ft 10 in Weight 48.988 kg [place] Body Weight (kg) 75.45 BMI 15.5 Subjective/Other Information Pt consult for diet education and NTR recommendations and screened for low BMI. Pt has a BMI of 15.5. Pt was not in room at time of visit. Burn Absent Trauma Absent Is patient on ventilator? No Is Patient Ambulatory and/or Out of Bed Yes REE-([facility]-ambulatory/OOB) [ 1723.969 [id number]] Calculation Used for Recommendations [facility] Additional Notes Pro: (1.2-1.5g/kg) 59-73g/ day Fluid: 1mL/kcal or per MD request Nutrition Intervention Change Diet Order: Continue current or per MD request Goal #1 PO intake to meet at least 75% of energy and protein needs Goal #2 Weight gain/maintenance Anticipated Discharge Needs: Unable to determine at this time Follow-Up By: 02/23/19 Additional Comments F/U: Intakes, diet education
--- NOTE | 2019-02-22 17:20 | Progress Note ---
Assessment and Plan Acute pontine stroke on the left Recommend: MRI/A reviewed, echo pending Change aspirin to Plavix, statin VTE prophylaxis would control BP as per protocol PT/OT/ST Continue care for all medical issues as you are doing Lipids and A1C Subjective Date of service: 02/22/19 Interval history: Pt initially seen by teleneuro. Feeling much better. Objective - Vital Sign Vital Signs - 12hr 02/22/19 02/22/19 02/22/19 05:42 06:41 10:10 Pulse Rate 65 82 Blood Pressure 133/68 O2 Sat by Pulse 98 Oximetry 02/22/19 11:02 Pulse Rate 77 Blood Pressure 149/101 O2 Sat by Pulse Oximetry - General Apperance Constitutional: comfortable - EENT EENT: PERRL, mucous membranes moist - Respiratory Respiratory: lungs clear - Cardiovascular Cardiovascular: regular rate Extremities: no peripheral edema bilat - Gastrointestinal Gastrointestinal: normoactive bowel sounds - Integumentary Integumentary: normal - Neurologic Cranial nerve examination: PERRL, EOMI, V1/V2/V3 grossly intact, face symmetric, tongue midline Speech examination: intact Motor examination - right side: 5/5: biceps, triceps, wrist flexion, wrist extension, test fixture designer, hip flexors, knee extensors, dorsiflexion, toe extension (EHL), plantarflexion Motor examination - left side: 5/5: biceps, triceps, wrist flexion, wrist extension, test fixture designer, hip flexors, knee extensors, dorsiflexion, toe extension (EHL), plantarflexion Detailed sensory examination: intact Reflex and gait examination: intact Reflexes: 1+: ankle, bicep, knee, tricep - Laboratory Findings CBC and BMP: 02/22/19 05:14 02/22/19 05:14 Abnormal Lab Findings: Abnormal Labs 02/21/19 02/21/19 02/21/19 14:42 14:42 21:19 RBC 5.74 H Hgb 16.5 H Hct 48.1 H RDW 15.6 H [place] % (Auto) 9.3 H Eos % (Auto) 5.4 H Chloride 107.4 H BUN 8 L Glucose 103 H Hemoglobin A1c Albumin Cholesterol 243 H LDL Cholesterol Direct 200 H HDL Cholesterol 36 L 02/22/19 02/22/19 02/22/19 05:14 05:14 05:14 RBC 5.43 H Hgb Hct 45.9 H RDW 15.5 H [place] % (Auto) 10.6 H Eos % (Auto) 6.8 H Chloride BUN Glucose 129 H Hemoglobin A1c 6.5 H Albumin 3.4 L Cholesterol LDL Cholesterol Direct HDL Cholesterol
[2019-02-23] MEDS: APRESOLINE IV SCH ×6 (02:45→22:00)
--- NOTE | 2019-02-23 10:50 | Discharge Summary ---
Providers - Providers Date of Admission: 02/21/19 20:54 Date of discharge: 02/23/19 Attending physician: KENDRICK EPDERSEN 02/21/19 Consult to Case Management [CONS] Routine Services Needed at Discharge: Physical Therapy Occupational Therapy Notified:: case management 02/21/19 20:54 Consult to Dietitian/Nutrition [CONS] Routine Physician Instructions: Reason For Exam: Reason for Consult: Nutrition Recommendations Reason for Consult: Diet education Occupational Therapy Evaluate and Treat [CONS] Routine Comment: Reason For Exam: Neuro deficits Physical Therapy Evaluation and Treat [CONS] Routine Comment: Reason For Exam: Neuro deficits 02/21/19 20:59 Consult to Dietitian/Nutrition [CONS] Routine Physician Instructions: Reason For Exam: Reason for Consult: Diet education 02/21/19 21:01 Speech Therapy Evaluation and Treat [CONS] Routine Reason For Exam: swallow eval 02/21/19 23:13 Consult to Physician [CONS] Routine Comment: Consulting Provider: KEVON CABAN Physician Instructions: Reason For Exam: CVA Primary care physician: CLEANING LABORER Hospitalization Condition: Stable Disposition: DC-30 STILL A PATIENT Exam - Constitutional Vitals: Temp Pulse Resp BP Pulse Ox 98.6 F 89 16 144/87 93 02/23/19 08:51 02/23/19 08:51 02/23/19 08:51 02/23/19 08:51 02/23/19 08:51 Plan Follow up with: STEVEN MACIEL MD [Referring] - 3-5 Days
[2019-02-23] MEDS: PEPCID PO SCH ×2 (11:22→21:52)
[2019-02-23] MEDS: COLACE PO SCH ×2 (11:22→21:52)
[2019-02-23] MEDS: PLAVIX PO SCH (11:22)
--- NOTE | 2019-02-23 13:14 | Progress Note ---
Assessment and Plan Assessment and plan: Acute nonhemorrhagic left pontine lacunar infarct. Continue aspirin and statin. No TPA given because of less known well time unknown. Echocardiogram reports moderate concentric left ventricular hypertrophy with EF of 50-55%. No right to left shunt noted from agitated saline contrast. Neurology following. PT/OT/ST. Accelerated hypertension. Add labetalol 200 mg by mouth twice a day Tobacco use disorder. Tobacco cessation counseling. History Interval history: No new issues overnight. Hospitalist Physical - Constitutional Vitals: Temp Pulse Resp BP Pulse Ox 98.6 F 95 H 18 179/91 92 02/23/19 12:13 02/23/19 12:13 02/23/19 12:13 02/23/19 12:13 02/23/19 12:13 General appearance: Present: no acute distress - EENT Eyes: Present: PERRL, EOM intact ENT: hearing intact, clear oral mucosa, dentition normal - Neck Neck: Present: supple, normal ROM - Respiratory Respiratory effort: normal Respiratory: bilateral: CTA - Cardiovascular Rhythm: regular Heart Sounds: Present: S1 & S2. Absent: gallop, rub - Extremities Extremities: no ischemia, No edema, Full ROM - Abdominal General gastrointestinal: soft, non-tender, non-distended, normal bowel sounds - Integumentary Integumentary: Present: clear, warm, dry - Neurologic Neurologic: CNII-XII intact, moves all extremities Results - Labs CBC & Chem 7: 02/22/19 05:14 02/22/19 05:14 Labs: Laboratory Last Values WBC 5.7 K/mm3 (4.5-11.0) 02/22/19 05:14 RBC 5.43 M/mm3 (3.65-5.03) H 02/22/19 05:14 Hgb 15.2 gm/dl (11.8-15.2) 02/22/19 05:14 Hct 45.9 % (35.5-45.6) H 02/22/19 05:14 MCV 85 fl (84-94) 02/22/19 05:14 MCH 28 pg (28-32) 02/22/19 05:14 MCHC 33 % (32-34) 02/22/19 05:14 RDW 15.5 % (13.2-15.2) H 02/22/19 05:14 Plt Count 171 K/mm3 (140-440) 02/22/19 05:14 Lymph % (Auto) 24.6 % (13.4-35.0) 02/22/19 05:14 [place] % (Auto) 10.6 % (0.0-7.3) H 02/22/19 05:14 Eos % (Auto) 6.8 % (0.0-4.3) H 02/22/19 05:14 Baso % (Auto) 1.2 % (0.0-1.8) 02/22/19 05:14 Lymph # 1.4 K/mm3 (1.2-5.4) 02/22/19 05:14 [place] # 0.6 K/mm3 (0.0-0.8) 02/22/19 05:14 Eos # 0.4 K/mm3 (0.0-0.4) 02/22/19 05:14 Baso # 0.1 K/mm3 (0.0-0.1) 02/22/19 05:14 Seg Neutrophils % 56.8 % (40.0-70.0) 02/22/19 05:14 Seg Neutrophils # 3.3 K/mm3 (1.8-7.7) 02/22/19 05:14 PT 13.1 Sec. (12.2-14.9) 02/21/19 14:42 INR 0.94 (0.87-1.13) 02/21/19 14:42 APTT 27.0 Sec. (24.2-36.6) 02/21/19 14:42 16.3 Sec. (15.1-19.6) 02/21/19 14:42 Sodium 142 mmol/L (137-145) 02/22/19 05:14 Potassium 4.0 mmol/L (3.6-5.0) 02/22/19 05:14 Chloride 106.7 mmol/L (98-107) 02/22/19 05:14 Carbon Dioxide 23 mmol/L (22-30) 02/22/19 05:14 16 mmol/L 02/22/19 05:14 BUN 9 mg/dL (9-20) 02/22/19 05:14 1.1 mg/dL (0.8-1.5) 02/22/19 05:14 Estimated GFR > 60 ml/min 02/22/19 05:14 8 % 02/22/19 05:14 Glucose 129 mg/dL (75-100) H 02/22/19 05:14 POC Glucose 88 (70-105) 02/22/19 22:23 6.5 % (4-6) H 02/22/19 05:14 Calcium 9.1 mg/dL (8.4-10.2) 02/22/19 05:14 0.40 mg/dL (0.1-1.2) 02/22/19 05:14 AST 15 units/L (5-40) 02/22/19 05:14 ALT 15 units/L (7-56) 02/22/19 05:14 73 units/L (35-129) 02/22/19 05:14 < 0.010 ng/mL (0.00-0.029) 02/21/19 14:42 6.3 g/dL (6.3-8.2) 02/22/19 05:14 3.4 g/dL (3.9-5) L 02/22/19 05:14 1.2 % 02/22/19 05:14 Triglycerides 140 mg/dL (2-149) 02/21/19 21:19 Cholesterol 243 mg/dL (50-199) H 02/21/19 21:19 200 mg/dL (50-130) H 02/21/19 21:19 36 mg/dL (40-59) L 02/21/19 21:19 6.75 % 02/21/19 21:19 Yellow (Yellow) 02/21/19 17:54 Clear (Clear) 02/21/19 17:54 5.0 (5.0-7.0) 02/21/19 17:54 Ur Specific [place] 1.017 (1.003-1.030) 02/21/19 17:54 <15 mg/dl mg/dL (Negative) 02/21/19 17:54 Neg mg/dL (Negative) 02/21/19 17:54 Neg mg/dL (Negative) 02/21/19 17:54 Neg (Negative) 02/21/19 17:54 Neg (Negative) 02/21/19 17:54 Neg (Negative) 02/21/19 17:54 2.0 mg/dL (<2.0) 02/21/19 17:54 Ur Leukocyte Esterase Neg (Negative) 02/21/19 17:54 1.0 /HPF (0.0-6.0) 02/21/19 17:54 < 1.0 /HPF (0.0-6.0) 02/21/19 17:54 Few /HPF 02/21/19 17:54 Presumptive negative 02/21/19 17:54 Presumptive negative 02/21/19 17:54 Ur Barbiturates Screen Presumptive negative 02/21/19 17:54 Ur Phencyclidine Scrn Presumptive negative 02/21/19 17:54 Ur Amphetamines Screen Presumptive negative 02/21/19 17:54 U Benzodiazepines Scrn Presumptive negative 02/21/19 17:54 Presumptive negative 02/21/19 17:54 U Marijuana (THC) Screen Presumptive negative 02/21/19 17:54 Disclamer 02/21/19 17:54 Active Medications - Current Medications Current Medications: Generic Name Dose Route Start Last Admin Trade Name Freq PRN Reason Stop Dose Admin Acetaminophen 650 mg 02/21/19 20:53 Tylenol PO Q4H PRN Pain MILD(1-3)/Fever >100.5/GUTIERREZ Atorvastatin Calcium 40 mg 02/22/19 22:00 02/22/19 22:08 Lipitor PO 40 mg QHS PERRY Administration Bisacodyl 10 mg 02/21/19 20:53 Dulcolax GA QDAY PRN Constipation Clopidogrel Bisulfate 75 mg 02/23/19 10:00 02/23/19 11:22 Plavix PO 75 mg QDAY PERRY Administration Docusate Sodium 100 mg 02/21/19 22:00 02/23/19 11:22 Colace PO 100 mg BID PERRY Administration Famotidine 20 mg 02/22/19 11:00 02/23/19 11:22 Pepcid PO 20 mg BID PERRY Administration Hydralazine HCl 10 mg 02/22/19 02:00 02/23/19 11:22 Apresoline IV 10 mg Q4HR PERRY Administration Sodium Chloride 1,000 mls @ 75 mls/hr 02/21/19 21:00 Nacl 0.9% 1000 Ml IV DIRECT PERRY Magnesium Hydroxide 30 ml 02/21/19 20:53 Milk Of Magnesia PO Q4H PRN Constipation Metoclopramide HCl 10 mg 02/21/19 20:53 Reglan PO Q6H PRN Nausea And Vomiting Ondansetron HCl 4 mg 02/21/19 20:53 Zofran IV Q8H PRN Nausea And Vomiting Oxycodone/Acetaminophen 1 tab 02/21/19 20:53 Percocet 5/325 PO Q6H PRN Pain, Moderate (4-6) Promethazine HCl 25 mg 02/21/19 20:53 Phenergan GA Q6H PRN Nausea And Vomiting Sodium Chloride 10 ml 02/21/19 22:00 02/22/19 22:08 Sodium Chloride Flush Syringe 10 Ml IV 10 ml BID PERRY Administration Sodium Chloride 10 ml 02/21/19 20:53 Sodium Chloride Flush Syringe 10 Ml IV PRN PRN LINE FLUSH Nutrition/Malnutrition Assess - Dietary Evaluation Nutrition/Malnutrition Findings: Nutrition Notes Start: 02/22/19 10:30 Freq: Status: Active Protocol: Document 02/23/19 10:06 CP (Rec: 02/23/19 10:11 CP [id number]) Co-Sign 02/23/19 10:06 LP Nutrition Notes Initial or Follow up Assessment Current Diagnosis Hypertension,Stroke Other Pertinent Diagnosis Tobacco use disorder Current Diet Cardiac Labs/Tests Reviewed Pertinent Medications Reviewed Height 5 ft 10 in Weight 50.2 kg [facility] Body Weight (kg) 75.45 BMI 15.8 Subjective/Other Information F/U for intakes and diet education. Pt stated that he had a "good" appetite and was eating 75% of his meals. When asked if the pt would be interested in diet education, the pt reported being "worn out" and asked to reschedule. Percent of energy/protein needs met: 91%/100% Burn Absent Trauma Absent #1 Nutrition Diagnosis Food and nutrition-related knowledge deficit Etiology Pt not receiving stroke nutrition therapy prior to visit. As Evidenced by Signs and Symptoms Pt asking for education. Is patient on ventilator? No Is Patient Ambulatory and/or Out of Bed Yes REE-([facility]-ambulatory/OOB) [ 1739.725 [id number]] Calculation Used for Recommendations [facility] Additional Notes Pro: (1.2-1.5g/kg) 59-73g/ day Fluid: 1mL/kcal or per MD request Nutrition Intervention Change Diet Order: Continue current or per MD request Goal #1 PO intake to meet at least 75% of energy and protein needs Goal #2 Weight gain/maintenance Anticipated Discharge Needs: Unable to determine at this time Follow-Up By: 02/24/19 Additional Comments F/U: Intakes, diet education, check weight
[2019-02-23] MEDS: NORMODYNE PO SCH ×2 (16:28→21:52)
[2019-02-23] MEDS: SODIUM CHLORIDE FLUSH SYRINGE 10 ML IV SCH (21:53)
[2019-02-24] MEDS: APRESOLINE IV SCH ×5 (01:34→17:52)
[2019-02-24] MEDS: SODIUM CHLORIDE FLUSH SYRINGE 10 ML IV SCH ×2 (08:59→10:40)
[2019-02-24] MEDS: PLAVIX PO SCH (10:38)
[2019-02-24] MEDS: COLACE PO SCH (10:39)
[2019-02-24] MEDS: NORMODYNE PO SCH (10:39)
[2019-02-24] MEDS: PEPCID PO SCH (10:39)
--- NOTE | 2019-02-24 14:25 | Discharge Summary ---
Providers - Providers Date of Admission: 02/21/19 20:54 Date of discharge: 02/24/19 Attending physician: KENDRICK PEDERSEN 02/21/19 Consult to Case Management [CONS] Routine Services Needed at Discharge: Physical Therapy Occupational Therapy Notified:: case management 02/21/19 20:54 Consult to Dietitian/Nutrition [CONS] Routine Physician Instructions: Reason For Exam: Reason for Consult: Nutrition Recommendations Reason for Consult: Diet education Occupational Therapy Evaluate and Treat [CONS] Routine Comment: Reason For Exam: Neuro deficits Physical Therapy Evaluation and Treat [CONS] Routine Comment: Reason For Exam: Neuro deficits 02/21/19 20:59 Consult to Dietitian/Nutrition [CONS] Routine Physician Instructions: Reason For Exam: Reason for Consult: Diet education 02/21/19 21:01 Speech Therapy Evaluation and Treat [CONS] Routine Reason For Exam: swallow eval 02/21/19 23:13 Consult to Physician [CONS] Routine Comment: Consulting Provider: KEVON CABAN Physician Instructions: Reason For Exam: CVA Primary care physician: SULFUR BURNER Hospitalization Reason for admission: cva Condition: Stable Hospital course: Patient is a 58-year-old male with PMHx of HTN for which she takes amlodipine, chronic neck and back, tobacco use disorder who presents to the ER with complaints of right-sided weakness and numbness 2 days. Patient states that the symptoms started around 12 noon the day prior to admission and then resolved. Patient stated he awakened the morning of admission at 6 AM with the same symptoms. H e went back to sleep and when he woke up the symptoms were still there at which time he decided to come to the ER for evaluation. LKN 1830 hrs 02/20/19 and therefore no TPA was given because outside of one toe. Patient had a CT scan of the brain in the ER which was negative. MRI/MRA revealed acute pontine stroke on the left. The patient was admitted with diagnosis of accelerated hypertension and acute CVA. Echocardiogram revealed left ventricular chamber size normal with moderate concentric left ventricular hypertrophy and an EF of 50-55%. No intracardiac shunting was demonstrated with agitated saline contrast. Neurology saw the patient in consultation and recommended aspirin be changed to Plavix and to continue statin. PT evaluated the patient and felt patient could go home with a straight cane and follow-up with home health PT. The hypertension was treated with labetalol 200 mg twice a day and normotension was obtained after initial permissive hypertension on admission. Dedicated discharge time 32 minutes. Disposition: [id number] HOME UNDER HOME [facility] Time spent for discharge: 32 - Discharge Diagnoses (1) Accelerated hypertension Status: Acute (2) CVA (cerebral vascular accident) Status: Acute Core Measure Documentation - Palliative Care Palliative Care/ Comfort Measures: Not Applicable - Core Measures Any of the following diagnoses?: stroke - Stroke Discharge Requirements Statin for LDL = or >70 mg/dl on DC: Yes Anticoag for atrial fib/atrial flutter: Not Applicable Antithrombotic for ischemic stroke: Yes Exam - Constitutional Vitals: Temp Pulse Resp BP Pulse Ox 98.0 F 82 18 147/81 95 02/24/19 04:48 02/24/19 06:00 02/24/19 04:48 02/24/19 04:48 02/24/19 04:48 General appearance: Present: no acute distress, well-nourished - EENT Eyes: Present: PERRL ENT: hearing intact, clear oral mucosa - Neck Neck: Present: supple, normal ROM - Respiratory Respiratory effort: normal Respiratory: bilateral: CTA - Cardiovascular Heart Sounds: Present: S1 & S2. Absent: rub, click - Extremities Extremities: pulses symmetrical, No edema Peripheral Pulses: within normal limits - Abdominal General gastrointestinal: Present: soft, non-tender, non-distended, normal bowel sounds Male genitourinary: Present: normal - Integumentary Integumentary: Present: clear, warm, dry - Musculoskeletal Musculoskeletal: gait normal, strength equal bilaterally - Psychiatric Psychiatric: appropriate mood/affect, intact judgment & insight - Neurologic Neurologic: CNII-XII intact, moves all extremities Plan Activity: advance as tolerated Weight Bearing Status: Weight Bear as Tolerated Diet: low fat, low cholesterol, low salt Special Instructions: physical therapy, home health RN (PT) Durable Medical Equipment Needed Upon Discharge: Cane Follow up with: STEVEN MACIEL MD [Referring] - 3-5 Days Prescriptions: AtorvaSTATin [Lipitor] 40 mg PO QHS #30 tablet Labetalol [Normodyne TAB] 200 mg PO BID #60 tablet Clopidogrel [Plavix] 75 mg PO QDAY #30 tablet
[2019-02-24 17:54] VITALS: BP 146/84
== END 2019-02-24 18:39 | disposition home or self-care (01) | DRG 65 ==
LOC: ED 13:12 → 4A 20:54
PROVIDERS: ADMIT Internal Medicine; ATTEND Hospitalist
DX: I63.9 Cerebral infarction, unspecified (principal); G81.91 Hemiplegia, unspecified affecting right dominant side; I10 Essential (primary) hypertension; G89.29 Other chronic pain; M54.9 Dorsalgia, unspecified; M54.2 Cervicalgia; F17.200 Nicotine dependence, unspecified, uncomplicated; F10.10 Alcohol abuse, uncomplicated; Z71.6 Tobacco abuse counseling
CPT/HCPCS: 36415; 70450; 70544; 70551; 80048; 80053; 80061; 80307; 81001; 82962; 83036; 84484; 85025; 85610; 85670; 85730; 93005; 93010; 93306; 99406; G0378; A9270-GY; J0360